=== PATIENT | female | born 1955 | race Caucasian/White ===

== ENCOUNTER 2021-03-21 10:29 | Day surgery (SDC) | payer BC, MEDICARE ==
[2021-03-19 14:25] LABS: BASOPHILS % (AUTO) 1 % (0-1); EOSINOPHILS % (AUTO) 3 % (1-7); LYMPHOCYTES % (AUTO) 13 % (22-44); MEAN CORPUSCULAR HEMOGLOBIN 28.3 pg (27.0-34.8); MEAN CORPUSCULAR HGB CONC 33.6 g/dL (32.4-35.8); MEAN PLATELET VOLUME 9.5 fL (7.4-10.4); MONOCYTES % (AUTO) 12 % (2-9); NEUTROPHILS % (AUTO) 71 % (42-75); PLATELET COUNT 152 x10^3/uL (130-400); RED BLOOD COUNT 4.41 x10^6/uL (3.82-5.3); RED CELL DISTRIBUTION WIDTH 14.8 % (9.6-15.2)
[2021-03-19 14:33] LABS: ALBUMIN 3.5 g/dL (3.4-5.0); ANION GAP 8 mmol/L (5-15); CALCIUM 9.8 mg/dL (8.5-10.1); CHLORIDE 100 mmol/L (98-107); INTERNATIONAL NORMALIZED RATIO 0.99 (0.93-1.1); PROTHROMBIN TIME 10.6 Seconds (9.6-11.5)
[2021-03-19 14:36] LABS: ALANINE AMINOTRANSFERASE 37 U/L (12-78); ALKALINE PHOSPHATASE 121 U/L (45-117); BILIRUBIN,TOTAL 0.3 mg/dL (0.2-1.0); CREATININE 2.75 mg/dL (0.55-1.02); TOTAL PROTEIN 7.8 g/dL (6.4-8.2)
[~2021-03-21] VITALS: Ht 154.9 cm; Wt 72.0 kg
[~2021-03-21 10:29] MED LIST: AMLO10TA4 PO; CHOL10003 PO; FURO40TA6 PO; GABA300C PO; LIPA1CAP64 PO; LISI40TA9 PO; MONT10TA6 PO; OXYC1TAB14 PO; PARO30TA45 PO; RABE20TA18 PO; ZOLP-413 PO
[2021-03-21] MEDS ORDERED: CHLORHEXIDINE 15 ML UDC PO ONE (11:00)
[2021-03-21] MEDS ORDERED: LACTATED RINGERS 1,000 ML IV SCH (11:00)
[2021-03-21 11:06] VITALS: BP 120/79
[2021-03-21 11:56] LABS: ALANINE AMINOTRANSFERASE 37 U/L (12-78); ALBUMIN 3.5 g/dL (3.4-5.0); ANION GAP 5 mmol/L (5-15); CALCIUM 9.7 mg/dL (8.5-10.1); CHLORIDE 103 mmol/L (98-107)
[2021-03-21 11:58] LABS: ALKALINE PHOSPHATASE 123 U/L (45-117); BILIRUBIN,TOTAL 0.3 mg/dL (0.2-1.0); TOTAL PROTEIN 7.8 g/dL (6.4-8.2)
[2021-03-21] MEDS ORDERED: SODIUM CHLORIDE 0.9% 1,000 ML IV SCH (12:00)
[2021-03-21] MEDS ORDERED: HEPARIN 1,000 UNITS/ML, 10ML ONE (13:27)
[2021-03-21] MEDS ORDERED: EPINEPHRINE 1 MG/ML, 1ML ONE (13:27)
[2021-03-21] MEDS ORDERED: BUPIVACAINE/PF 0.5% ONE (13:27)
[2021-03-21] MEDS ORDERED: FENTANYL PF 250 MCG/5ML ONE (14:18)
[2021-03-21] MEDS ORDERED: PROPOFOL 10 MG/ML, 20ML ONE (14:18)
[2021-03-21] MEDS ORDERED: ROCURONIUM 10 MG/ML,10ML ONE (14:18)
[2021-03-21] MEDS ORDERED: ONDANSETRON 2MG/ML, 2ML ONE (14:18)
[2021-03-21] MEDS ORDERED: MIDAZOLAM 1 MG/ML, 2ML ONE (14:18)
[2021-03-21] MEDS ORDERED: EPHEDRINE 50 MG/ML, 1ML ONE (14:18)
[2021-03-21] MEDS ORDERED: DEXAMETHASONE 4 MG/ML, 1ML ONE (14:25)
[2021-03-21] MEDS ORDERED: SUGAMMADEX 200 MG/2 ML IVPush ONE (14:39)
[2021-03-21] MEDS ORDERED: PROMETHAZINE 25 MG/ML, 1ML IVPush PRN (15:00)
[2021-03-21] MEDS ORDERED: MIDAZOLAM 1 MG/ML, 2ML IV PRN (15:00)
[2021-03-21] MEDS ORDERED: ONDANSETRON 2MG/ML, 2ML IVPush PRN (15:00)
[2021-03-21] MEDS ORDERED: MEPERIDINE/PF 25MG/0.5ML IVPush PRN (15:00)
[2021-03-21] MEDS ORDERED: ALBUTEROL SULFATE 2.5 MG/3 ML NPPB PRN (15:00)
[2021-03-21] MEDS ORDERED: OXYcodone 5 MG/5 ML ORAL.SOL UDC PO PRN (15:00)
[2021-03-21] MEDS ORDERED: FENTANYL PF 100 MCG/2ML IV PRN (15:00)
[2021-03-21] MEDS ORDERED: EPHEDRINE 50 MG/ML, 1ML IVPush PRN (15:00)
[2021-03-21] MEDS ORDERED: ACETAMINOPHEN 325 MG TABLET PO PRN (15:00)
[2021-03-21] MEDS ORDERED: LABETALOL 5MG/ML, 20ML IV PRN (15:00)
[2021-03-21] MEDS ORDERED: PROMETHAZINE 12.5 MG SUPP PR PRN (15:00)
[2021-03-21] MEDS ORDERED: hydrALAzine 20 MG/ML, 1ML IV PRN (15:00)
[2021-03-21] MEDS ORDERED: HYDROmorphone 1 MG/ML, 1ML INJ IVPush PRN (15:00)
[2021-03-21] MEDS ORDERED: DIPHENHYDRAMINE 50 MG/ML, 1ML IVPush PRN ×2 (15:00)
[2021-03-21] MEDS ORDERED: DIAZEPAM 5 MG/ML, 2ML ONE (15:04)
[2021-03-21] MEDS: DIAZEPAM 5 MG/ML, 2ML IVPush PRN ×2 (15:07→15:21)
[2021-03-21] MEDS ORDERED: OXYcodone 5 MG/5 ML ORAL.SOL UDC ONE (15:20)
== END 2021-03-21 16:20 | disposition home or self-care (01) ==
LOC: OR 10:29 → OUT 16:20
PROVIDERS: ATTEND Surgery
DX: E11.22 Type 2 diabetes mellitus with diabetic chronic kidney disease (principal); I12.0 Hypertensive chronic kidney disease with stage 5 chronic kidney disease or end stage renal disease; N18.6 End stage renal disease; K66.0 Peritoneal adhesions (postprocedural) (postinfection); E78.5 Hyperlipidemia, unspecified; Z20.822 Contact with and (suspected) exposure to COVID-19; Z79.891 Long term (current) use of opiate analgesic; Z79.899 Other long term (current) drug therapy; Z87.891 Personal history of nicotine dependence; Z88.2 Allergy status to sulfonamides; Z88.8 Allergy status to other drugs, medicaments and biological substances; Z90.49 Acquired absence of other specified parts of digestive tract; Z98.1 Arthrodesis status; Z99.2 Dependence on renal dialysis
CPT/HCPCS: 36415; 49324; 80053; 82962; 85025; 85610; 85730; 93005; J0171; J1100; J2250; J2405; J2704; J3010; J3360; J7030; U0003; U0005; J1644